=== PATIENT | male | born 1935 | race Caucasian/White ===

== ENCOUNTER 2016-09-08 08:00 | Day surgery (SDC) | payer MEDICARE, OTHER ==
[~2016-09-08 08:00] MED LIST: EPINEPHRINE INJ 1 MG/10 ML DISP.SYRIN ONE; FENTANYL CITRATE INJ/PF 100 MCG/2 ML AMPUL ONE; FLUMAZENIL INJ 0.5 MG/5 ML VIAL IV ONE; GLUCAGON,HUMAN RECOMB 1 MG INJ ONE; GLYCOPYRROLATE INJ 0.4 MG/2 ML VIAL ONE; NALOXONE HCL INJ/PF 0.4 MG/1 ML SDV ONE; ONDANSETRON HCL INJ/PF 4 MG/2 ML SDV ONE; PROMETHAZINE HCL INJ 25 MG/1 ML VIAL ONE
[2016-09-08] MEDS: MIDAZOLAM 2 MG/2 ML INJ ONE ×2 (08:40→08:45)
--- NOTE | 2016-09-08 09:57 | Operative Report ---
Operative Report DATE OF SURGERY: 09/08/16 PREOPERATIVE DIAGNOSIS: 1. Personal history of colon polyps. 2. History of gastric polyps. POSTOPERATIVE DIAGNOSIS: 1. Distal esophageal inflammation. 2. Diffuse gastritis with punctate, umbilicated lesions. 3. Small fundic polyps of the stomach. 4. Mild duodenitis. 5. Sigmoid diverticulosis. 6. Colonic polyps 2 OPERATION: 1. Esophagogastroduodenoscopy. 2. Mucosal biopsies of the GE junction, stomach. 3. Gastric polypectomy 2. 4. Total colonoscopy to cecum. 5. Colonic polypectomy 2 with hot snare device and specimen retrieval SURGEON: EWELINA ARROYO ANESTHESIA: Moderate Sedation TISSUE REMOVED OR ALTERED: 1. Multiple gastric specimens. 2. Esophageal biopsy. 3. Colonic polyps COMPLICATIONS: None ESTIMATED BLOOD LOSS: scant INTRAOPERATIVE FINDINGS: See below PROCEDURE: The patient was taken to the endoscopy suite was placed in summary, position monitoring devices attached. Surgical plan surgical timeout conducted After appropriate level sedation, the flexible upper endoscope was advanced to the oropharynx, down the esophagus through the stomach into the duodenum. This was a well-tolerated procedure. The duodenum was patent with no bleeding no masses. There was mild duodenitis. The scope was brought through the pylorus which unremarkable. The gastric term had multiple small lesions raised resembling polyps with a central umbilicated pit filled with a small amount of blood. Photos were taken. One of these small lesions was biopsied and sent as gastric polyp. In addition a random biopsy was taken of the gastric for CLOtest. The main body of the stomach were multiple small pedunculated polyps consistent with fundic polyps one of these was removed with the cold forceps device. Bleeding was minimal. Scope was retroflexed in the stomach. There was no significant hiatal hernia. The GE junction was at 30 cm from the incisor. The GE junction was somewhat guarded with irregular mucosa in a circumferential fashion; no addison mass or ulcer. A random biopsy of the GE junction was obtained. Bleeding was minimal. The scope was withdrawn to the patient's esophagus. No evidence of varices or strictures seen. Scope was withdrawn the patient's oral pharynx no other pathology seen in the hypopharynx. Patient thought procedure well. Patient was then prepared for colonoscopy. The patient was placed in the left lateral decubitus position with knees to chest. A perianal examination was performed. There was no visible or palpable anorectal pathology. Sphincter tone was felt to be normal. The flexible adult colonoscope was advanced through the anal rectal canal, all the way to the cecum. Utilization of the cecum was achieved and the ileocecal valve, the appendiceal orifice and transillumination of the anterior abdominal wall. This was a reasonably well-prepped bowel; there was minimal residual solid and semisolid stool which washed out easily . The colonoscope was withdrawn slowly and methodically checked and the mucosa carefully. There was no evidence of tumor, stricture, bleeding. There were 2 pedunculated polyps approximately 7 mm in diameter one in the transverse colon and one in the left colon. Both lesions were removed in their entirety using the hot snare device on medium heat strength, with specimens retrieved and labeled as transverse colon and left colon polyps. There was extensive sigmoid diverticulosis but no stricture . The scope was slowly withdrawn through the anal rectal canal. Complete visualization of the rectum was achieved with photodocumentation. The scope was withdrawn to the patient's anus. The patient tolerated the procedure well and was taken to the recovery area in stable condition. Per surveillance guidelines, patient is appropriate candidate for follow-up colonoscopy in 3 years time or sooner if symptoms develop.
--- NOTE | 2016-09-08 10:05 | PDOC DISCHARGE SUMMARY ---
Discharge Summary (SDC) - Discharge Final Diagnosis: Polyps, Gastritis, Gastric polyps Date of Surgery: 09/08/16 Discharge Date: 09/08/16 Condition: Good Treatment or Instructions: [facility] [place] [id number] POST ENDOSCOPY DISCHARGE INSTRUCTIONS 1. Diet: Start clear liquids that a regular diet as tolerated. 2. Resume all preoperative medications. All oral anticoagulants and aspirins can be resumed 24 hours after procedure. 3. If a polypectomy was performed some bleeding per rectum may occur. This should stop within 3 days. If not, please contact the office. 4. If you had a colonoscopy you may experience some bloating and delayed return of normal bowel function for several days, your regular bowel movement pattern should resume within a week. 5. Please contact [facility] at to make an appointment with Dr. Morris for 1 to 3 weeks following procedure. 6. If you have any questions or concerns regarding your care,treatment plan or follow up, please contact our office. 7. Per clinical guidelines we recommend you undergo a repeat colonoscopy in 3 years. Discharge Diet: As Tolerated Discharge Activity: Activity As Tolerated Report the Following to Your Physician Immediately: Shortness of Breath, Increase in Pain, Fever over 101 Degrees
[2016-09-08 10:32] VITALS: BP 114/53
== END 2016-09-08 10:50 | disposition home or self-care (01) ==
LOC: END 08:00
PROVIDERS: ATTEND Surgery
PROC: 0DBL8ZX Excision of Transverse Colon, Via Natural or Artificial Opening Endoscopic, Diagnostic (ICD-10-PCS; 2016-09-08)
PROC: 0DBG8ZX Excision of Left Large Intestine, Via Natural or Artificial Opening Endoscopic, Diagnostic (ICD-10-PCS; 2016-09-08)
PROC: 0DB68ZX Excision of Stomach, Via Natural or Artificial Opening Endoscopic, Diagnostic (ICD-10-PCS; principal; 2016-09-08 08:15)
PROC: 0DB48ZX Excision of Esophagogastric Junction, Via Natural or Artificial Opening Endoscopic, Diagnostic (ICD-10-PCS; 2016-09-08 08:15)
DX: K29.50 Unspecified chronic gastritis without bleeding (principal); K31.7 Polyp of stomach and duodenum; D12.3 Benign neoplasm of transverse colon; K44.9 Diaphragmatic hernia without obstruction or gangrene; E78.00 Pure hypercholesterolemia, unspecified; M19.90 Unspecified osteoarthritis, unspecified site; E78.5 Hyperlipidemia, unspecified; Z87.891 Personal history of nicotine dependence; Z79.899 Other long term (current) drug therapy
CPT/HCPCS: 43239; 45385; 88342 ×2; 88341 ×2; 88305 ×2; J2250; J3010; J0171; J1610; J2310; J2405; J2550; J3490

== ENCOUNTER 2019-11-20 06:23 | Day surgery (SDC) | payer MEDICARE, OTHER ==
[2019-11-14 10:23] LABS: HEMOGLOBIN 15.9 g/dL (13.5-17.0); MEAN CORPUSCULAR HEMOGLOBIN 33.9 pg (27.0-33.4); MEAN CORPUSCULAR HGB CONC 35.2 g/dL (32.0-36.0); MEAN CORPUSCULAR VOLUME 96 fl (80-97); PLATELET COUNT 173 10^3/uL (150-450); RED BLOOD COUNT 4.67 10^6/uL (4.35-5.55); RED CELL DISTRIBUTION WIDTH 13.2 % (11.5-14.0); WHITE BLOOD COUNT 5.3 10^3/uL (4.0-10.5)
--- NOTE | 2019-11-15 12:40 | EKG REPORT ---
SEVERITY:- OTHERWISE NORMAL ECG - SINUS RHYTHM LOW VOLTAGE IN FRONTAL LEADS : Confirmed by: Radha Solitario 15-Nov-2019 12:40:04
[~2019-11-20 06:23] MED LIST changes: +ACETAMINOPHEN 325 MG TABLET PO PRN; -EPINEPHRINE INJ 1 MG/10 ML DISP.SYRIN ONE; -FENTANYL CITRATE INJ/PF 100 MCG/2 ML AMPUL ONE; -FLUMAZENIL INJ 0.5 MG/5 ML VIAL IV ONE; -GLUCAGON,HUMAN RECOMB 1 MG INJ ONE; -GLYCOPYRROLATE INJ 0.4 MG/2 ML VIAL ONE; +LACTATED RINGERS 1000 ML IV PRN; +LIDOCAINE 0.5% INJ-PF (5 MG/ML) 50 ML SDV SUBCUT PRN; -NALOXONE HCL INJ/PF 0.4 MG/1 ML SDV ONE; -ONDANSETRON HCL INJ/PF 4 MG/2 ML SDV ONE; -PROMETHAZINE HCL INJ 25 MG/1 ML VIAL ONE
[2019-11-20] MEDS ORDERED: PROPOFOL INJ 200 MG/20 ML VIAL IV ONE (07:22)
--- NOTE | 2019-11-20 09:39 | Discharge Summary ---
Discharge Summary (SDC) - Discharge Final Diagnosis: 1. Personal history of colon polyps 2. Family history of colon cancer 3. History of gastric fundic polyps Date of Surgery: 11/20/19 Discharge Date: 11/20/19 Condition: Good Treatment or Instructions: [address] [address] POST ENDOSCOPY DISCHARGE INSTRUCTIONS 1. Diet: Start clear liquids that a regular diet as tolerated. 2. Resume all preoperative medications. All oral anticoagulants and aspirins can be resumed 24 hours after procedure. 3. If a polypectomy was performed some bleeding per rectum may occur. This should stop within 3 days. If not, please contact the office. 4. If you had a colonoscopy you may experience some bloating and delayed return of normal bowel function for several days, your regular bowel movement pattern should resume within a week. 5. Please contact [facility] at to make an appointment with Dr. Morris for 1 to 3 weeks following procedure. 6. If you have any questions or concerns regarding your care,treatment plan or follow up, please contact our office. 7. Per clinical guidelines we recommend you undergo a repeat colonoscopy in 3 to 5years pending final path report Referrals: LIBORIO CALHOUN MD [Primary Care Provider] - Discharge Diet: As Tolerated Discharge Activity: Activity As Tolerated Home Care Assistance: None Needed Report the Following to Your Physician Immediately: Shortness of Breath, Increase in Pain, Fever over 101 Degrees
--- NOTE | 2019-11-20 09:43 | Operative Report ---
Operative Report DATE OF SURGERY: 11/20/19 PREOPERATIVE DIAGNOSIS: 1. Personal history of colon polyps. 2. Strong family history of colon cancer POSTOPERATIVE DIAGNOSIS: Same with. 1. Extensive right and left colonic diverticulosis. 2. Multiple right colon polyps OPERATION: 1. Total colonoscopy to cecum. 2. Right colon polypectomy x3 SURGEON: EWELINA ARROYO ANESTHESIA: LMAC TISSUE REMOVED OR ALTERED: Polyps COMPLICATIONS: None ESTIMATED BLOOD LOSS: Scant INTRAOPERATIVE FINDINGS: See below PROCEDURE: Obtaining informed consent the patient was taken from the preoperative holding area to the main endoscopy suite where monitoring devices were attached to the patient. Plan and surgical timeout were conducted The patient was placed in the left lateral decubitus position with knees to chest. A perianal examination was performed. There was no visible or palpable anorectal pathology. Sphincter tone was felt to be normal. The flexible adult colonoscope was advanced through the anal rectal canal, all the way to the cecum. Visualization of the cecum was achieved by demonstration of the ileocecal valve, the appendiceal orifice and transillumination of the anterior abdominal wall. This was a a very good study and a reasonably well-prepped bowel. There is a fair amount of stool in the left colon which required irrigation and aspiration. In the right colon there were multiple diverticular disease, and 3 slightly pedunculated polyps, all small, photographed, and each removed individually with the hot snare device, medium strength. All 3 specimens were retrieved and sent to pathology in the same container as right colon polyps. There was no significant bleeding at the polypectomy sites The colonoscope was withdrawn slowly and methodically checked and the mucosa carefully. There was no evidence of tumor, stricture, bleeding. There were more diverticulosis of the left colon, with no evidence of stricture. Photographs were taken. The scope was slowly withdrawn through the anal rectal canal. Complete visualization of the rectum was achieved with photodocumentation. The scope was withdrawn to the patient's anus. The patient tolerated the procedure well and was taken to the recovery area in stable condition. Per surveillance guidelines, patient will be an appropriate candidate for follow-up colonoscopy in 3 to 5 years
[2019-11-20 11:58] VITALS: BP 133/68
== END 2019-11-20 10:30 | disposition home or self-care (01) ==
LOC: OROUT 06:23
PROVIDERS: ATTEND Surgery
DX: Z12.11 Encounter for screening for malignant neoplasm of colon (principal); K57.30 Diverticulosis of large intestine without perforation or abscess without bleeding; Z86.010 Personal history of colon polyps; Z80.0 Family history of malignant neoplasm of digestive organs; Z88.5 Allergy status to narcotic agent; Z03.818 Encounter for observation for suspected exposure to other biological agents ruled out; E78.00 Pure hypercholesterolemia, unspecified; Z87.19 Personal history of other diseases of the digestive system; Z87.891 Personal history of nicotine dependence; Z79.899 Other long term (current) drug therapy; K44.9 Diaphragmatic hernia without obstruction or gangrene; Z85.828 Personal history of other malignant neoplasm of skin; G62.9 Polyneuropathy, unspecified
CPT/HCPCS: 45380; 45385; 93005; 36415; 85027; 88305 ×2; 93010; 00811; U0003; J2704; C9803; 811; 87635